=== PATIENT | male | born 1975 | race American Indian/Alaskan Native ===

== ENCOUNTER 2020-08-13 12:43 | Emergency (ER) | payer SELFPAY ==
--- NOTE | 2020-08-13 13:08 | Event Note ---
ED Screening Note ED Screening Note: states his girlfriends dog bit her police called to the girlfriends place to find vaccination status or quarentine the dog unsure of last tetanus right index finger PMHx HTN no allergies to meds This initial assessment/diagnostic orders/clinical plan/treatment(s) is/are subject to change based on patients health status, clinical progression and re- assessment by fellow clinical providers in the ED. Further treatment and workup at subsequent clinical providers discretion. Patient/guardian urged not to elope from the ED as their condition may be serious if not clinically assessed and managed. Initial orders include: ACC
[2020-08-13 13:09] VITALS: BP 158/107
[2020-08-13] MEDS ORDERED: DIPHtheria,PERTUSSIS(ACELL),TETANUS VACCINE/PF 0.5 ML VIAL IM ONE (13:09)
--- NOTE | 2020-08-13 13:47 | XRay Report ---
RIGHT HAND 3 VIEW(S) INDICATION / CLINICAL INFORMATION: right index finger dog bite COMPARISON: None available. FINDINGS: BONES / JOINT(S): No acute fracture or subluxation. No significant arthritis. SOFT TISSUES: No soft tissue gas or radiopaque foreign body. ADDITIONAL FINDINGS: None. IMPRESSION: No acute osseous findings of the right hand. No soft tissue gas or radiopaque foreign body. Signer Name: Abelardo Harrison MD Signed: 08/13/2020 1:43 PM Workstation Name: [id number]
--- NOTE | 2020-08-13 14:54 | Emergency Department Report ---
ED Animal Bite HPI - General Chief Complaint: Animal Bite Stated Complaint: DOG BITE LT HAND Time Seen by Provider: 08/13/20 13:07 Source: patient Mode of arrival: Ambulatory Limitations: No Limitations - History of Present Illness Initial Comments: This is a 44-year-old male brought by mother nontoxic, well nourished in appearance, no acute signs of distress presents to the ED with c/o of dog bite to right hand that occured this evening. Patient stated that the dogs is girlfriends. Denies any other injuries or bite vela. Patient denies any head trauma or any other trauma. PAtient stated police and girlfriend confirmed rabbies vaccines. Patient states that he is not up-to-date with tetanus. Patient denies any fever, chills, nausea, vomiting, headache, stiff neck. Patient denies any allergies or significant past medical history. Patient stated police and animal control are notified. MD Complaint: animal bite -: This evening Right: Hand Animal: dog Animal Control Notified: Yes Description: household pet Mechanism: bite Severity scale (0 -10): 3 Context: unprovoked Associated Symptoms: bleeding. denies: erythema, discharge from wound, fever, chills, rash, loss of consciousness, cough, headache, diaphoresis, shortness of breath - Related Data Patient Tetanus UTD: No Previous Rx's Medication Instructions Recorded Last Taken Type Amoxicillin/K Clav Tab [Augmentin 1 tab PO Q12HR #20 tab 08/13/20 Unknown Rx 875 mg] Allergies Allergy/AdvReac Type Severity Reaction Status Date / Time No Known Allergies Allergy Unverified 08/13/20 12:47 ED Review of Systems ROS: Stated complaint: DOG BITE LT HAND Other details as noted in HPI Comment: All other systems reviewed and negative Constitutional: denies: chills, fever Eyes: denies: eye pain, eye discharge, vision change ENT: denies: ear pain, throat pain Respiratory: denies: cough, shortness of breath, wheezing Cardiovascular: denies: chest pain, palpitations Endocrine: no symptoms reported Gastrointestinal: denies: abdominal pain, nausea, diarrhea Genitourinary: denies: urgency, dysuria Musculoskeletal: denies: back pain, joint swelling, arthralgia Skin: denies: rash, lesions Neurological: denies: headache, weakness, paresthesias Psychiatric: denies: anxiety, depression Hematological/Lymphatic: denies: easy bleeding, easy bruising ED Past Medical Hx - Past Medical History Previous Medical History?: Yes Hx Hypertension: Yes - Medications Home Medications: Home Medications Medication Instructions Recorded Confirmed Last Taken Type Amoxicillin/K Clav Tab [Augmentin 1 tab PO Q12HR #20 tab 08/13/20 Unknown Rx 875 mg] ED Physical Exam - General Limitations: No Limitations General appearance: alert, in no apparent distress - Head Head exam: Present: atraumatic, normocephalic - Eye Eye exam: Present: normal appearance - Neck Neck exam: Present: normal inspection, full ROM. Absent: tenderness, meningismus, lymphadenopathy - Respiratory Respiratory exam: Absent: respiratory distress - Cardiovascular Cardiovascular Exam: Present: regular rate - Extremities Exam Extremities exam: Present: normal inspection, full ROM, tenderness, normal capillary refill. Absent: joint swelling - Expanded Upper Extremity Exam Right General: Present: normal inspection Shoulder Exam: Present: normal inspection, full ROM. Absent: tenderness, swelling Upper Arm exam: Present: normal inspection, full ROM. Absent: tenderness, swelling Elbow exam: Present: normal inspection, full ROM. Absent: tenderness, swelling Forearm Wrist exam: Present: normal inspection, full ROM. Absent: tenderness, swelling Hand Wrist exam: Present: full ROM, tenderness, abrasion. Absent: swelling, laceration, ecchymosis, deformity, crepidus, dislocation, erythema, amputation, nail avulsion, subungual hematoma Hand L/R Front: 1 - Positive: other (1 cm abrasion noted) Vascular: Present: normal capillary refill. Absent: vascular compromise (Neurovascular within normal limits) - Back Exam Back exam: Present: normal inspection, full ROM. Absent: tenderness, CVA tenderness (R), CVA tenderness (L), muscle spasm, paraspinal tenderness, vertebral tenderness, rash noted - Neurological Exam Neurological exam: Present: alert, oriented X3, normal gait - Psychiatric Psychiatric exam: Present: normal affect, normal mood - Skin Skin exam: Present: warm, dry, intact, normal color. Absent: rash ED Course Vital Signs 08/13/20 12:48 Temperature 98.8 F Pulse Rate 84 Respiratory 18 Rate Blood Pressure 158/107 O2 Sat by Pulse 96 Oximetry - Reevaluation(s) Reevaluation #1: 08/13/20 14:53 Patient is speaking in full sentences with no signs of distress noted. Critical care attestation.: If time is entered above; I have spent that time in minutes in the direct care o f this critically ill patient, excluding procedure time. ED Disposition Clinical Impression: Dog bite Qualifiers: Encounter type: initial encounter Qualified Code(s): W54.0XXA - Bitten by dog, initial encounter Disposition: DC- TO HOME OR SELFCARE Is pt being admited?: No Does the pt Need Aspirin: No Condition: Stable Instructions: Animal Bite, Adult, Wound Care, Adult Additional Instructions: Follow-up with a primary care doctor in 3-5 days or if symptoms worsen and continue return to emergency room as soon as possible. Prescriptions: Amoxicillin/K Clav Tab [Augmentin 875 mg] 1 tab PO Q12HR #20 tab Referrals: PRIMARY MD MICHAEL [Referring] - 3-5 Days LISSETTE DESOUZA MD [Staff Physician] - 3-5 Days ED Medical Decision Making - Radiology Data Referring Physician: JACQUELIN YA Patient Name: AMY CERVANTES Date of : 1975 Sex: Male Report Date: 2020-08-13 Report Status: Finalized [address] [address] XRay Report Signed Patient: AMY CERVANTES MR#: [id number] : 1975 Acct:[id number] Age/Sex: 44 / M ADM Date: 08/13/20 Loc: ED Attending Dr: Ordering Physician: BARRETT HUBER Date of Service: 08/13/20 Procedure(s): XR hand 3+V RT Accession Number(s): [id number] cc: BARRETT HUBER Fluoro Time In Minutes: RIGHT HAND 3 VIEW(S) INDICATION / CLINICAL INFORMATION: right index finger dog bite COMPARISON: None available. FINDINGS: BONES / JOINT(S): No acute fracture or subluxation. No significant arthritis. SOFT TISSUES: No soft tissue gas or radiopaque foreign body. ADDITIONAL FINDINGS: None. IMPRESSION: No acute osseous findings of the right hand. No soft tissue gas or radiopaque foreign body. Signer Name: Colt Harrison MD Signed: 08/13/2020 1:43 PM Workstation Name: [id number] Transcribed By: HELGA Dictated By: COLT LANZA MD Electronically Authenticated By: COLT LANZA MD Signed Date/Time: 08/13/201342 DD/ 41 TD/TT: - Medical Decision Making Patient received tetanus booster in the ER. Patient is stable and was examined by me. Vital signs are stable. Patient stated dog is up-to-date with rabies vaccines. The hand has been soaked with Betadine and water. Patient was e ducated on proper wound care. Sterile dressing has been applied. Patient was instructed to follow-up with a primary care doctor in 3-5 days or if symptoms worsen and continue return to emergency room as soon as possible. At time of discharge, the patient does not seem toxic or ill in appearance. No acute signs of distress noted. Patient agrees to discharge treatment plan of care. No further questions noted by the patient.
== END 2020-08-13 15:05 | disposition home or self-care (01) ==
LOC: ED 12:43
DX: S61.452A Open bite of left hand, initial encounter (principal); I10 Essential (primary) hypertension; Z79.899 Other long term (current) drug therapy; W54.0XXA Bitten by dog, initial encounter; Y93.89 Activity, other specified; Y92.89 Other specified places as the place of occurrence of the external cause; Y99.8 Other external cause status
CPT/HCPCS: 90471; 90715; 99283

== ENCOUNTER 2021-01-09 06:39 | Emergency (ER) | payer SELFPAY ==
--- NOTE | 2021-01-09 10:48 | Emergency Department Report ---
ED GI Bleed HPI - General Chief complaint: GI Bleed Stated complaint: RECTAL BLEEDING Time Seen by Provider: 01/09/21 10:35 Source: patient Mode of arrival: Ambulatory Limitations: No Limitations - History of Present Illness Initial comments: Patient is 45 years old male with no significant past medical history. Patient presented today ER complaining of painful rectal bleeding since yesterday. Patient denied any injury or trauma. He stated that the blood is bright red. No melena. Patient denied any fever or chills. Patient stated that he had h istory of hemorrhoids before. Patient currently denying any dizziness, shortness of breath or chest pain. Patient stated that he is taking ibuprofen every now and then for back problem. MD complaint: blood on toilet paper -: Last night Radiation: none Quality: sharp Associated Symptoms: denies other symptoms - Related Data Previous Rx's Medication Instructions Recorded Last Taken Type Amoxicillin/K Clav Tab [Augmentin 1 tab PO Q12HR #20 tab 08/13/20 Unknown Rx 875 mg] Hydrocortisone [Anucort-HC SUPPOS] 25 mg RC BID 7 Days #14 supp.rect 01/09/21 Unknown Rx Allergies Allergy/AdvReac Type Severity Reaction Status Date / Time No Known Allergies Allergy Verified 01/09/21 07:26 ED Review of Systems ROS: Stated complaint: RECTAL BLEEDING Other details as noted in HPI Comment: All other systems reviewed and negative Constitutional: denies: chills, fever Respiratory: denies: cough, shortness of breath, SOB with exertion Cardiovascular: denies: chest pain Gastrointestinal: hematochezia. denies: abdominal pain, nausea, vomiting, hematemesis, melena Musculoskeletal: denies: back pain Neurological: denies: headache, weakness ED Past Medical Hx - Past Medical History Previous Medical History?: Yes Hx Hypertension: Yes - Surgical History Past Surgical History?: No - Social History Smoking Status: Heavy Tobacco Smoker Substance Use Type: None - Medications Home Medications: Home Medications Medication Instructions Recorded Confirmed Last Taken Type Amoxicillin/K Clav Tab [Augmentin 1 tab PO Q12HR #20 tab 08/13/20 Unknown Rx 875 mg] Hydrocortisone [Anucort-HC SUPPOS] 25 mg RC BID 7 Days #14 supp.rect 01/09/21 Unknown Rx ED Physical Exam - General Limitations: No Limitations General appearance: alert, in no apparent distress - Head Head exam: Present: atraumatic, normocephalic, normal inspection - Eye Eye exam: Present: normal appearance - ENT ENT exam: Present: normal exam, normal orophraynx, mucous membranes moist - Neck Neck exam: Present: normal inspection, full ROM. Absent: tenderness, meningismus - Respiratory Respiratory exam: Present: normal lung sounds bilaterally - Cardiovascular Cardiovascular Exam: Present: regular rate, normal rhythm, normal heart sounds - GI/Abdominal GI/Abdominal exam: Present: soft, normal bowel sounds. Absent: distended, tenderness, guarding, rebound, rigid, organomegaly, mass, bruit, pulsatile mass, hernia - Rectal Rectal exam: Present: hemorrhoids. Absent: bloody stool, tenderness - Back Exam Back exam: Present: normal inspection - Neurological Exam Neurological exam: Present: alert, oriented X3, CN II-XII intact, normal gait - Psychiatric Psychiatric exam: Present: normal mood - Skin Skin exam: Present: warm, intact, normal color ED Course Vital Signs 01/09/21 01/09/21 01/09/21 07:25 10:38 10:46 Temperature 98.6 F Pulse Rate 70 76 Respiratory 18 18 Rate Blood Pressure 136/91 O2 Sat by Pulse 99 100 99 Oximetry 01/09/21 11:00 Temperature Pulse Rate Respiratory Rate Blood Pressure 132/87 O2 Sat by Pulse 96 Oximetry ED Medical Decision Making - Medical Decision Making Patient is 45 years old male with no significant past medical history. Patient presented today ER complaining of painful rectal bleeding since yesterday. Patient denied any injury or trauma. He stated that the blood is bright red. No melena. Patient denied any fever or chills. Patient stated that he had history of hemorrhoids before. Patient currently denying any dizziness, shortness of breath or chest pain. Patient stated that he is taking ibuprofen every now and then for back problem. Patient exam showed external hemorrhoid, no active bleeding. Patient patient refused labs. Patient given hemorrhoid packs and advised to follow-up with his primary care physician in the next 2 to 3 days and to return to the ER if he develop any new symptoms. Critical care attestation.: If time is entered above; I have spent that time in minutes in the direct care of this critically ill patient, excluding procedure time. ED Disposition Clinical Impression: GI bleed, Hemorrhoids with complication Disposition: TO HOME OR SELFCARE Is pt being admited?: No Condition: Stable Instructions: Gastrointestinal Bleeding, Hemorrhoids Prescriptions: Hydrocortisone [Anucort-HC SUPPOS] 25 mg RC BID 7 Days #14 supp.rect Referrals: PRIMARY CARE,MD [Primary Care Provider] - 3-5 Days Forms: Accompanied Note
[2021-01-09 12:50] VITALS: BP 132/87
== END 2021-01-09 11:22 | disposition home or self-care (01) ==
LOC: ED 06:39
DX: K92.2 Gastrointestinal hemorrhage, unspecified (principal); K64.9 Unspecified hemorrhoids; I10 Essential (primary) hypertension; Z79.899 Other long term (current) drug therapy; F17.200 Nicotine dependence, unspecified, uncomplicated
CPT/HCPCS: 99281

== ENCOUNTER 2022-01-11 11:01 | Emergency (ER) | payer MEDICARE, OTHER ==
[2022-01-11] MEDS ORDERED: KETOROLAC 10 MG TAB PO ONE (14:34)
[2022-01-11] MEDS ORDERED: DEXAMETHASONE 4 MG TAB PO ONE (14:34)
[2022-01-11] MEDS ORDERED: CYCLOBENZAPRINE 10 MG TAB PO ONE (14:34)
--- NOTE | 2022-01-11 15:01 | Emergency Department Report ---
ED Back Pain/Injury HPI - General Chief Complaint: Fall Stated Complaint: BACK PAIN Time Seen by Provider: 01/11/22 14:28 Source: patient Limitations: No Limitations - History of Present Illness Initial Comments: 46-year-old black male with no past medical history presents to the emergency department for evaluation of lower back pain. He states that while at work this morning, he was lifting a very heavy object and started to have back pain began. He states that pain is 9 out of 10, Complaint: back pain -: Sudden, hour(s) Similar Symptoms Previously: No Place: work Radiation: none Severity scale (0 -10): 9 Quality: aching Consistency: constant Worsens With: other (Palpation) Context: while lifting Associated Symptoms: denies: weakness, chest pain, numbness, difficulty walking, difficulty urinating, diaphoresis - Related Data Previous Rx's Medication Instructions Recorded Last Taken Type Amoxicillin/K Clav Tab [Augmentin 1 tab PO Q12HR #20 tab 08/13/20 Unknown Rx 875 mg] Hydrocortisone [Anucort-HC SUPPOS] 25 mg RC BID 7 Days #14 supp.rect 01/09/21 Unknown Rx Cyclobenzaprine [Flexeril] 10 mg PO TID PRN #21 tab 01/11/22 Unknown Rx Lidocaine [Lidoderm] 1 each TP DAILY #10 patch 01/11/22 Unknown Rx Naproxen [Naprosyn] 500 mg PO BID #14 tab 01/11/22 Unknown Rx Allergies Allergy/AdvReac Type Severity Reaction Status Date / Time No Known Allergies Allergy Verified 01/09/21 07:26 ED Review of Systems ROS: Stated complaint: BACK PAIN Other details as noted in HPI Comment: All other systems reviewed and negative Constitutional: denies: chills, fever Respiratory: denies: shortness of breath, SOB with exertion, SOB at rest Cardiovascular: denies: chest pain, palpitations, dyspnea on exertion, orthopnea Gastrointestinal: denies: abdominal pain, nausea, vomiting Musculoskeletal: back pain. denies: joint swelling, arthralgia, myalgia Neurological: denies: headache, weakness, numbness, paresthesias, confusion, abnormal gait ED Past Medical Hx - Past Medical History Hx Hypertension: Yes - Social History Smoking Status: Heavy Tobacco Smoker Substance Use Type: None - Medications Home Medications: Home Medications Medication Instructions Recorded Confirmed Last Taken Type Amoxicillin/K Clav Tab [Augmentin 1 tab PO Q12HR #20 tab 08/13/20 Unknown Rx 875 mg] Hydrocortisone [Anucort-HC SUPPOS] 25 mg RC BID 7 Days #14 supp.rect 01/09/21 Unknown Rx Cyclobenzaprine [Flexeril] 10 mg PO TID PRN #21 tab 01/11/22 Unknown Rx Lidocaine [Lidoderm] 1 each TP DAILY #10 patch 01/11/22 Unknown Rx Naproxen [Naprosyn] 500 mg PO BID #14 tab 01/11/22 Unknown Rx ED Physical Exam - General Limitations: No Limitations General appearance: alert, in no apparent distress - Head Head exam: Present: atraumatic, normocephalic - Eye Eye exam: Present: normal appearance. Absent: conjunctival injection - Neck Neck exam: Present: normal inspection. Absent: tenderness, full ROM, lymphadenopathy - Respiratory Respiratory exam: Present: normal lung sounds bilaterally. Absent: respiratory distress, wheezes, rales, rhonchi, stridor, chest wall tenderness - Cardiovascular Cardiovascular Exam: Present: regular rate, normal heart sounds - GI/Abdominal GI/Abdominal exam: Present: soft, normal bowel sounds. Absent: distended, tenderness, guarding, rebound, rigid - Extremities Exam Extremities exam: Present: normal inspection, normal capillary refill. Absent: pedal edema, joint swelling, calf tenderness - Back Exam Back exam: Present: normal inspection. Absent: CVA tenderness (R), CVA tenderness (L) - Expanded Back Exam Expanded Back exam: Absent: saddle anesthesia - Neurological Exam Neurological exam: Present: alert, oriented X3, normal gait - Psychiatric Psychiatric exam: Present: normal affect, normal mood - Skin Skin exam: Present: warm, dry, intact, normal color ED Course Vital Signs 01/11/22 12:38 Temperature 98.5 F Pulse Rate 73 Respiratory 18 Rate Blood Pressure 144/95 O2 Sat by Pulse 100 Oximetry ED Medical Decision Making - Medical Decision Making 46-year-old black male with no past medical history presents to the emergency department for evaluation of lower back pain. He states that while at work this morning, he was lifting a very heavy object and started to have back pain began. He states that pain is 9 out of 10, Exam consistent with musculoskeletal pain only. Patient will be treated with anti-inflammatories, muscle relaxants, and one-time dose of steroids. He will be discharged home with anti-inflammatories, muscle relaxants, and Lidoderm patch to use as needed for pain. He is advised to follow-up with orthopedics for further evaluation and management. He is advised to return to the emergency department for any concerning symptoms. He verbalized understanding of and agreement with plan of care. Critical care attestation.: If time is entered above; I have spent that time in minutes in the direct care o f this critically ill patient, excluding procedure time. ED Disposition Clinical Impression: Back pain Qualifiers: Back pain location: low back pain Chronicity: acute Back pain laterality: bilateral Sciatica presence: without sciatica Qualified Code(s): M54.50 - Low back pain, unspecified Disposition: HOME / SELF CARE / HOMELESS Is pt being admited?: No Does the pt Need Aspirin: No Condition: Stable Instructions: Acute Back Pain, Adult, Back Injury Prevention, [id number] Additional Instructions: Take medications as prescribed. Follow-up with orthopedics or primary care provider if no improvement or worsening symptoms. Return to the emergency department for any concerning symptoms. Prescriptions: Cyclobenzaprine [Flexeril] 10 mg PO TID PRN #21 tab PRN Reason: Muscle Spasm Lidocaine [Lidoderm] 1 each TP DAILY #10 patch Naproxen [Naprosyn] 500 mg PO BID #14 tab Referrals: LISSETTE DESOUZA MD [Primary Care Provider] - 3-5 Days YASEMIN SANTOS MD [Staff Physician] - 3-5 Days Forms: Work/School Release Form(ED) Time of Disposition: 15:21
[2022-01-11 16:10] VITALS: BP 124/78
== END 2022-01-11 16:09 | disposition home or self-care (01) ==
LOC: ED 11:01
DX: M54.50 Low back pain, unspecified (principal); F17.200 Nicotine dependence, unspecified, uncomplicated; I10 Essential (primary) hypertension
CPT/HCPCS: 99282; J8540